=== PATIENT | male | born 1960 | race Caucasian/White ===

== ENCOUNTER 2024-11-09 15:32 | Emergency (ER) | payer BC ==
[~2024-11-09] VITALS: Ht 175.3 cm; Wt 76.2 kg
[2024-11-09 15:40] VITALS: PULSE 89; O2SAT 98
[2024-11-09 16:31] LABS: BASOPHILS % 0.5 % (0.0-1.0); EOSINOPHILS % 2.5 % (0.0-6.0); LYMPHOCYTES % 21.5 % (18.0-39.1); MONOCYTES % 6.5 % (4.4-11.3); NEUTROPHILS % 68.4 % (38.7-80.0); RED CELL DISTRIBUTION WIDTH 13.7 % (11.7-14.4)
[2024-11-09 16:52] VITALS: RESP 20
[2024-11-09 16:52] LABS: EST GLOMERULAR FILTRATION RATE 93.0 ML/MIN (>=60)
[2024-11-09] MEDS: AMLODIPINE BESYLATE 5 MG TAB PO ONE (16:52)
[2024-11-09 18:05] VITALS: BP 154/113
== END 2024-11-09 17:39 | disposition home or self-care (01) ==
LOC: ER 15:54
DX: I10 Essential (primary) hypertension (principal)
CPT/HCPCS: 36415; 80053; 85025; 99283